=== PATIENT | female | born 1970 | race Caucasian/White ===

== ENCOUNTER 2023-12-28 06:40 | Day surgery (SDC) | payer OTHER, SELFPAY ==
[2023-12-28 07:56] VITALS: BMI 23.8
[2023-12-28 07:57] VITALS: BP 105/60; BMI 23.8
[2023-12-28] MEDS: NORMOSOL-R 1000 IV (08:16)
[2023-12-28 09:24] VITALS: BP 80/51
[2023-12-28 09:26] VITALS: BP 87/57
[2023-12-28 09:30] VITALS: BP 94/56
[2023-12-28] MEDS: MOTRIN 600 MG PO (09:40)
[2023-12-28 09:45] VITALS: BP 97/53
== END 2023-12-28 10:15 | disposition home or self-care (01) ==
LOC: SDS 06:40
PROVIDERS: ATTENDING PHYSICIAN Urology
DX: N39.41 Urge incontinence (principal)
CPT/HCPCS: 64590; 64581; 95972; 72170; 76000; 93005; C1778; C1787; C1820; L8681